=== PATIENT | female | born 1945 | race Caucasian/White ===

== ENCOUNTER 2022-01-01 15:19 | Emergency (ER) | payer MEDICARE, BC ==
[~2022-01-01 15:19] MED LIST: ATORVASTATIN CA10 MG PO; COZAAR 25MG TAB25 MG PO; GLUCOPHAGE 500500 MG PO; JANUVIA50 MG PO; LEVOTHYROXINE50 MCG PO; PROTONIX40 MG PO
[2022-01-01 16:03] LABS: HEMOGLOBIN 7.7 gm/dl (12.3-15.3); RED BLOOD COUNT 2.78 M/UL (4.00-5.10); WHITE BLOOD COUNT 15.8 K/UL (4.5-11.0)
== END 2022-01-01 21:30 | disposition short-term general hospital (02) ==
LOC: ER1 15:19
PROVIDERS: Preventive Medicine Occupational Medicine
DX: K63.1 Perforation of intestine (nontraumatic) (principal); R18.8 Other ascites; Z20.822 Contact with and (suspected) exposure to COVID-19; Z51.81 Encounter for therapeutic drug level monitoring
CPT/HCPCS: 0240U; 31500; 36600; 70450; 71045; 80053; 81001; 82009; 82550; 82553; 82803; 82962; 83605; 83690; 83880; 84484; 85025; 85610; 85652; 85730; 86140; 86850; 86900; 86901; 86920; 87040; 87086; 93005; 94002; 94760; 96365; 96366; 96375; 99285; J1265; J1335; J2930; J3370; J7030; P9016